=== PATIENT | female | born 1980 | race Asian ===

== ENCOUNTER 2023-09-24 01:26 | Emergency (ER) | payer BC, SELFPAY ==
[2023-09-24 01:44] VITALS: BP 114/73
--- NOTE | 2023-09-24 02:08 | ED.GENMED ---
Addendum entered and electronically signed by Chalo Roca MD 09/24/23 08:18:
Patient's was informed of the CT finding and need for follow-up. We will also send him via email a copy of the report
Original Note:
History of Present Illness
General
Chief Complaint: Abdominal Pain
Source: patient and spouse
Exam Limitations: none
Time Seen by Provider: 09/24/23 01:56
Nursing documentation reviewed up to this point in time: agreed with
History of Present Illness
History of Present Illness:
43-year-old female presents emergency room complaining of left lower quadrant intermittent stabbing pain since Thursday. It was more constant tonight. No aggravating/relieving factors.
Past History
Past History
ED Past Medical History: None
ED Past Surgical History: None
Social History
Tobacco: Non-smoker
Alcohol: None
Drug: None
Personal:
Living: with family
Review of Systems
Review of Systems
Allergies reviewed?: Yes
All Other Systems: Not applicable
Constitutional: Reports no symptoms
EENT: Reports no symptoms
Respiratory: Reports no symptoms; Denies trouble breathing
Cardiac: Reports no symptoms; Denies chest pain
ABD/GI: Reports abdominal pain
: Reports flank pain
Musculoskeletal: Reports no symptoms
Skin: Reports no symptoms
Neurological: Reports no symptoms
Endocrine: Reports no symptoms
Hematologic/Lymphatic: Reports no symptoms
Psychiatric: Reports no symptoms
Phy Exam
Physical Exam
Physical Exam:
Physical Exam
General: no apparent distress, not acutely ill
Neck: supple. no meningeal signs. normal posterior pharynx
Heart: s1/s2 regular rate and rhythm, no murmur. equal radial
pulses.
HEENT: Pupils equal round reactive to light, EOMI
Lungs: no acute respiratory distress. clear bilaterally
Abdomen: normal bowel sounds. not tender. no CVAT
Neuro: alert and oriented. no focal neurological deficits cranial nerves II through XII intact
Skin: no rash
Psychiatric: well kept. interactive and cooperative
Extremities: no edema. no calf tenderness. negative homans. good distal pulses
Course
Orders/Labs/Results
Orders:
Orders
09/24/23 01:49
IV Insert/Care/Rem.- Treatment PRN
09/24/23 02:06
Test Result ONCE
09/24/23 02:07
CT Abd/pel Without Iv Or Oral Urgent
Comment:
Reason For Exam: left flank/LUQ pain 3 days
09/24/23 02:23
Complete Blood Count/With Diff Urgent
HCG, Urine Qualitative Screen Urgent
Date Specimen was Collected: 09/24/23
Time Specimen was Collected: 02:06
Urinalysis Reflex To Culture Urgent
Date Specimen was Collected: 09/24/23
Time Specimen was Collected: 01:49
Urine Microscopic Reflex Cult Urgent
09/24/23 02:50
Comprehensive Metabolic Panel Urgent
Comment: REDRAW
Lipase Urgent
09/24/23 04:17
Pantoprazole [Protonix IV] 40 mg IV NOW STA
Abnormal Lab Results
09/24/23 09/24/23
02:23 02:50
RBC 4.08 L 10^6/uL
(4.20-5.40)
Hct 36.0 L %
(37.0-47.0)
Monocytes % 9.4 H %
(1.7-9.3)
Chloride 110 H mmol/L
(98-107)
BUN 25 H mg/dl
(7-17)
Leukocyte Esterase Rfl Trace A
(Negative)
09/24/23 02:23
09/24/23 02:50
Vital Signs
Initial and Last Documented VS:
Initial Vital Signs
Temp Pulse Resp BP Pulse Ox
98.2 F 51 20 114/73 100
09/24/23 01:44 09/24/23 01:44 09/24/23 01:44 09/24/23 01:44 09/24/23 01:44
Last Documented Vital Signs
Temp Pulse Resp BP Pulse Ox
98.2 F 51 20 114/73 100
09/24/23 01:44 09/24/23 01:44 09/24/23 01:44 09/24/23 01:44 09/24/23 01:44
MDM/Problems Addressed
Differential Diagnosis Includes:
Kidney stone, pancreatitis, diverticulitis
MDM/Problems Addressed:
43-year-old female with left flank/left upper quadrant abdominal pain, no acute findings on CT scan or labs. Patient stable for discharge. Follow-up with primary care, gastroenterology if symptoms persist.. Protonix prescribed.
*Radiology
Radiology exam reviewed: radiology read reviewed (CT abdomen pelvis no acute findings)
*Pulse Oximetry
Patient hypoxic: no
*Critical Care Note
Total Time (30-74mins, 75-104mins- exclusive of procedures): Not Applicable
Patient Management
Social determinants of health affecting care: Living situation
Escalation/DeEscalation of care consider admission/obs:
Admit not indicated
ED Attending Note
-
Portions of this chart may have been created with voice recognition software.� Occasional wrong word or��sound alike� substitutions may have occurred due to the inherent limitations of voice recognition software.
Discharge Plan
Departure
Patient Disposition: Home (Routine Discharge)
Date of Disposition: 09/24/23
Time of Disposition: 04:18
Patient with high blood pressure during this ER visit?: No
Condition: Good
Discharge Problem:
Abdominal pain, Acute left flank pain
Instructions: Abdominal Pain
Prescriptions:
New
pantoprazole [Protonix] 40 mg tablet,delayed release (DR/EC)
40 mg PO DAILY Qty: 30 0RF
Referrals:
PRIVATE,PHYSICIAN [Family Provider] - Call in 1-3 days for appt
Kalpana Navarro MD [Active] - Call in 1-3 days for appt
Interventions
Interventions:
*Risk Screen - Suicide Last Done: 09/24/23 01:44
*General Assessment Last Done: 09/24/23 01:44
*Neglect/Abuse Screening Last Done: 09/24/23 01:44
ED- Fall Risk Assessment Last Done: 09/24/23 01:44
*ED COVID-19 Vaccine History Last Done: 09/24/23 01:44
CZ-Awqdtu-Jgovebytxx Assessment Last Done: 09/24/23 02:27
Discharge Date and Time
Print Language: BULGARIAN
[2023-09-24 02:27] VITALS: BMI 23.8
[2023-09-24 02:31] LABS: % Basophils 1.4 % (0-2); % Eosinophils 1.7 % (0-6); % Immature Granulocytes 0.2 % (0-0.5); % Lymphocytes 38.3 % (20.5-51.1); % Monocytes 9.4 % (1.7-9.3); Absolute Basophils 0.1 10^3/uL (0-0.2); Absolute Eosinophils 0.1 10^3/uL (0-0.7); Absolute Lymphocytes 2.2 10^3/uL (1.2-3.4); Absolute Monocytes 0.6 10^3/uL (0.1-0.6); Absolute Neutrophils 2.9 10^3/uL (1.4-6.5); Hemoglobin 12.4 g/dL (12.0-16.0); Mean Corp Hgb Conc. 34.4 g/dL (33.0-37.0); Mean Corpuscular Hgb 30.4 pg (27.0-31.0); Mean Corpuscular Volume 88.2 fL (81.0-99.0); Mean Platelet Volume 9.3 fL (7.4-10.4); Nucleated Red Blood Cells % 0 %; Platelet Count 297 10^3/uL (130-400); Red Blood Cell Count 4.08 10^6/uL (4.20-5.40); Red Cell Dist. Width 13.4 % (11.5-14.5); White Blood Cell Count 5.8 10^3/uL (4.8-10.8)
[2023-09-24 02:33] LABS: Urine Albumin Negative (Neg - Trace); Urine Bilirubin Negative (Negative); Urine Character Clear (Clear); Urine Color Yellow; Urine Glucose Negative (Negative); Urine Ketone Negative (Negative); Urine Leukocyte Trace (Negative); Urine Nitrite Negative (Negative); Urine Occult Blood Negative (Negative); Urine Specific Gravity 1.015 (<1.030); Urine Urobilinogen Negative (Neg - 1+); Urine pH 6.5 (5.0-9.0)
[2023-09-24 02:34] LABS: HCG, Urine Qualitative Screen Negative
[2023-09-24 03:05] LABS: Urine Red Blood Cell 0-2 /HPF (0-2); Urine White Cell 0-2 /HPF (0-5)
[2023-09-24 03:21] LABS: ALT (SGPT) 14 U/L (0-35); AST (SGOT) 24 U/L (14-36); Alkaline Phosphatase 45 U/L (38-126); Blood Urea Nitrogen 25 mg/dl (7-17); Calcium 9.2 mg/dl (8.4-10.2); Carbon Dioxide 22 mmol/L (22-30); Chloride 110 mmol/L (98-107); Estimated Creatinine Clearance 62 ml/min; Glucose 83 mg/dl (70-99); Lipase 177 U/L (23-300); Potassium 4.1 mmol/L (3.5-5.1); Sodium 138 mmol/L (135-145); Total Bilirubin 0.2 mg/dl (0.2-1.3); Total Protein 6.5 g/dl (6.3-8.2); eGFR > 60.00
[2023-09-24] MEDS: PROTONIX IV 40 MG IV (04:32)
[2023-09-24 04:37] VITALS: BP 109/71
== END 2023-09-24 04:40 | disposition home or self-care (01) ==
LOC: EMR 01:26
PROVIDERS: EMERGENCY PHYSICIAN Emergency Medicine
DX: R10.32 Left lower quadrant pain (principal)
CPT/HCPCS: 99284; 74176; 80053; 81003; 81015; 81025; 83690; 85025

== ENCOUNTER → 2023-12-10 06:21 | Day surgery (SDC) | payer BC, SELFPAY | LOC: GI 06:21 | PROVIDERS: ATTENDING PHYSICIAN Internal Medicine Gastroenterology | DX: R10.12 Left upper quadrant pain (principal); K22.89 Other specified disease of esophagus | CPT/HCPCS: 43239; 88305; 88342 ==